=== PATIENT | male | born 1980 | race African-American/Black ===

== ENCOUNTER 2025-03-08 11:44 | Emergency (ER) | payer MEDICAID ==
[~2025-03-08] VITALS: Ht 193 cm; Wt 113.4 kg
[2025-03-08 11:48] VITALS: BP 150/110
[2025-03-08] MEDS: IV NORMAL SALINE 1000 ML BAG IV ONE (12:16)
[2025-03-08 12:18] LABS: PLATELET COUNT (AUTO) 301 K/uL (152-348); RED BLOOD CELL COUNT(AUTO) 4.19 MIL/uL (4.06-5.63); RED CELL DISTRIBUTION WIDTH 13.4 % (12.1-16.2); WHITE BLOOD COUNT (AUTO) 6.5 K/uL (3.6-10.2)
[2025-03-08 12:29] LABS: CREATININE 1.4 mg/dL (0.6-1.3); SODIUM SERUM 134.0 mmol/L (136-145); UREA NITROGEN, BLOOD 24.0 mg/dL (7-18)
[2025-03-08 12:40] LABS: ASPARTATE AMINOTRANSFERASE 84.0 U/L (15-37); TOTAL PROTEIN, SERUM 8.1 g/dL (6.4-8.2)
[2025-03-08] MEDS ORDERED: INSULIN REGULAR, HUMAN 1000 UNIT/10 ML VIAL ONE (13:04)
[2025-03-08] MEDS: INSULIN REGULAR, HUMAN 1000 UNIT/10 ML VIAL SQ ONE (13:06)
[2025-03-08] MEDS ORDERED: METFORMIN HCL 500 MG TABLET ONE (13:32)
[2025-03-08] MEDS: METFORMIN HCL 500 MG TABLET PO ONE (13:32)
[2025-03-08] MEDS ORDERED: ACAR50TA4 PO (13:46)
[2025-03-08] MEDS ORDERED: AMLO-212 PO (13:46)
[2025-03-08] MEDS ORDERED: METF-440 PO (13:46)
[2025-03-08 14:31] VITALS: BP 144/96; TEMP 97.5; O2SAT 98
== END 2025-03-08 14:28 | disposition home or self-care (01) ==
LOC: ER 12:03
DX: E11.65 Type 2 diabetes mellitus with hyperglycemia (principal); I10 Essential (primary) hypertension; J45.909 Unspecified asthma, uncomplicated; R53.1 Weakness; F19.10 Other psychoactive substance abuse, uncomplicated; Z79.4 Long term (current) use of insulin; Z79.84 Long term (current) use of oral hypoglycemic drugs; Z88.2 Allergy status to sulfonamides
CPT/HCPCS: 99284; 96360; 80076; 80048; 82962 ×2; 83690; 85025; 36415; 93005; 96372; J1815; J7040; A4606; A4663